=== PATIENT | male | born 1955 | race Caucasian/White ===

== ENCOUNTER 2023-08-02 08:34 | Emergency (ER) | payer MEDICARE, SELFPAY ==
[2023-08-02 08:40] VITALS: BP 120/72; PULSE 72; RESP 18; TEMP 36.8; O2SAT 99
--- NOTE | 2023-08-02 09:19 | ED.DENTAL ---
HPI - Dental/Oral General Chief complaint: Dental/Oral Stated complaint: tooth ache Time Seen by Provider: 08/02/23 08:59 Source: patient Mode of arrival: ambulatory Limitations: no limitations History of Present Illness HPI Narrative: Patient is a 67-year-old male who presents the ED with report of right lower dental pain. Patient reports having known dental issues, complains of pain to his right lower tooth, tooth #30, since yesterday. Has been using Tylenol and ibuprofen for the pain with some relief. Does not currently see a dentist. Denies difficulty breathing or swallowing. Denies fevers. Denies vomiting. Related Data Allergies Allergy/AdvReac Type Severity Reaction Status Date / Time No Known Allergies Allergy Verified 08/02/23 08:37 Review of Systems Review of Systems: CONSTITUTIONAL: Denies fever, chills, or sweats. ENT: See HPI CARDIOVASCULAR: Denies chest pain RESPIRATORY: Denies cough or dyspnea. GASTROINTESTINAL: Denies abdominal pain, nausea, vomiting All systems reviewed & are unremarkable except as noted in HPI and below Exam Narrative: GENERAL: Well appearing, non-toxic, in no acute distress. HEAD: Normocephalic, atraumatic. ENT: Diffuse dental decay, scattered dental caries. Tooth number 30 with erosion to base of tooth, exposed root. TTP along inner/outer gumline surrounding tooth. No focal abscess or drainage. Area of teeth #31-32 eroded down to gumline. Scattered areas of leukoplakia-like lesions throughout mouth, no masses. No stridor or trismus. MMs moist. RESPIRATORY: Airway patent, respirations nonlabored. No stridor. CARDIOVASCULAR: Regular rate and rhythm MUSCULOSKELETAL: Moves all extremities. No gross deformities. SKIN: Warm, dry, normal color. NEURO: A&O X3. Speech clear. PSYCHIATRIC: Appropriate mood and affect. Normal interaction. Course Vital Signs Vital signs: Vital Signs Temperature 98.3 F 08/02/23 08:40 Pulse Rate 72 08/02/23 08:40 Respiratory Rate 18 08/02/23 08:40 Blood Pressure 120/72 08/02/23 08:40 Pulse Oximetry 99 08/02/23 08:40 Oxygen Delivery Room Air 08/02/23 08:40 Temperature 98.3 F 08/02/23 08:40 Pulse Rate 72 08/02/23 08:40 Respiratory Rate 18 08/02/23 08:40 Blood Pressure 120/72 08/02/23 08:40 Pulse Oximetry 99 08/02/23 08:40 Oxygen Delivery Room Air 08/02/23 08:40 MDM - Dental/Oral MDM Narrative Medical decision making narrative: Patient's pain is consistent with dental caries. There are no focal signs of space-occupying abscess. The patient is controlling secretions well without signs of airway compromise. Patient is felt reasonable for outpatient follow-up with dental evaluation. Will start patient on Augmentin for dental infection. Offered pain medication however patient declined. Advised to continue Tylenol and ibuprofen as needed for discomfort. Recommended close follow-up with dentist for further evaluation. Patient given list of dentists. Given return precautions. Discharged in stable condition. Medical Records Attestation: I reviewed the patient's medical records. Discharge Plan Discharge Clinical Impression: Toothache, Dental caries Patient Disposition: Home, Self-Care Condition: Stable Instructions: Antibiotic Form, Dental Abscess (ED), Toothache (ED) Additional Instructions: Take antibiotics as prescribed for dental infection. Continue Tylenol and ibuprofen as needed for discomfort. You may use ice to face to help with swelling/pain. Stay well-hydrated. Follow-up with dentist for further evaluation. Return to the ED if you experience worsening or severe pain or swelling, unable to keep down food or drink, difficulty breathing or swallowing, persistent fevers, or any other symptoms of concern. Prescriptions: New amoxicillin-pot clavulanate 875-125 mg tablet 1 tablet PO Q12H 7 Days Qty: 14 0RF Follow-up/Referrals: Sterling Melendez MD [Physician] - [facility]
[2023-08-02] MEDS: AMOXICILLIN/CLAVULANATE K 875-125 MG TAB 1 TABLET PO (10:04)
== END 2023-08-02 10:10 | disposition home or self-care (01) ==
LOC: ANHED 09:34
PROVIDERS: Emergency Provider Physician Assistant
DX: K02.9 Dental caries, unspecified (principal)
CPT/HCPCS: 99283; A9270